=== PATIENT | male | born 1965 | race Caucasian/White ===

== ENCOUNTER 2017-04-04 20:11 | Emergency (ER) | payer OTHER ==
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
--- NOTE | 2017-04-05 07:37 | CR ---
Chest: Two views of the chest are obtained. Comparison: No previous study. Right upper lung nodule is identified measuring approximately 3.1 cm. Lungs are hyperinflated compatible with emphysematous change. Scattered degenerative change and scoliosis noted within the spine. No acute infiltrates are seen. Impression: 1. Right upper lung nodule. Contrast-enhanced chest CT recommended to further evaluate. 2. Emphysematous change and other incidental findings. Diagnostic code #9
== END 2017-04-04 23:08 | disposition home or self-care (01) ==
LOC: JD.ED 20:11
DX: M54.5 Low back pain (principal); L98.8 Other specified disorders of the skin and subcutaneous tissue; R25.2 Cramp and spasm; R53.83 Other fatigue; F17.210 Nicotine dependence, cigarettes, uncomplicated; Z98.1 Arthrodesis status; Z98.890 Other specified postprocedural states
CPT/HCPCS: 36415; 71020; 71020-26; 80053; 83735; 83880; 84443; 85025; 99283; 99284

== ENCOUNTER 2017-04-04 23:27 | Emergency (ER) | payer OTHER | END 2017-04-04 23:57 | LOC: JD.ED 23:27 | DX: Z53.21 Procedure and treatment not carried out due to patient leaving prior to being seen by health care provider (principal); M54.5 Low back pain; L98.9 Disorder of the skin and subcutaneous tissue, unspecified; R25.2 Cramp and spasm; R53.83 Other fatigue; F17.210 Nicotine dependence, cigarettes, uncomplicated; Z98.1 Arthrodesis status; Z98.890 Other specified postprocedural states | CPT/HCPCS: 36415; 71020; 71020-26; 80053; 83735; 83880; 84443; 85025; 99282-25; 99283; 99284 ==